=== PATIENT | female | born 1990 | race Caucasian/White ===

== ENCOUNTER 2018-10-07 05:43 | Inpatient (IN) | payer MEDICAID ==
[~2018-10-07] VITALS: Ht 157.5 cm; Wt 86.0 kg
--- NOTE | 2018-10-07 05:44 | NSTRPT ---
NST Information Datetime Report Generated by CPN: 10/07/2018 05:44 Datetime: 10/03/2018 09:21 NST Information EGA: 39.0 Test Number: 4 Time on Monitor: 10/03/2018 09:35 Time off Monitor: 10/03/2018 09:56 NST Duration (Min): 21 Reason for NST: Diabetes Mellitus; Other Reason for NST Other: A2DM Test and Monitor Explained: Monitor Explained; Test Explained; Verbalized Understanding Pulse: 82 Resp: 18 SBP: 113 DBP: 63 Test Evaluation NST Interventions: None Patient States Movement: Present Contraction Frequency: NONE FHR Baseline : 135 Variability: Moderate 6-25bpm Accelerations: 15X15 Decelerations: None FHR Category: Category I NST Results: Reactive Comments: PT TO U/S; UZMA 13.7; Cephalic; FBS 88 Electronically Signed By E-Signature: with User ID: [id number] Datetime: 09/30/2018 13:07 NST Information EGA: 38.4 NST Duration (Min): 36 Datetime: 09/26/2018 13:52 NST Information EGA: 38.0 NST Duration (Min): 41 Datetime: 09/23/2018 13:16 NST Information EGA: 37.4 NST Duration (Min): 45
[2018-10-07 05:55] VITALS: Ht 157.5 cm; Wt 86.0 kg
[2018-10-07 06:10] VITALS: BP 113/57; PULSE 88; RESP 19
[2018-10-07] MEDS ORDERED: LACTATED RINGER'S 1,000 ML IV SCH ×2 (06:11→13:41)
[2018-10-07] MEDS ORDERED: LACTATED RINGER'S 1,000 ML IV PRN (06:13)
[2018-10-07] MEDS ORDERED: CEFAZOLIN 2 GM/50 ML (PMX) 50 ML IVPB SCH (06:30)
[2018-10-07] MEDS ORDERED: CARBOPROST 250 MCG INJ IM PRN ×2 (06:30→14:00)
[2018-10-07] MEDS ORDERED: METHYLERGONOVINE 0.2 MG INJ IM PRN ×2 (06:30→14:00)
[2018-10-07] MEDS ORDERED: OXYTOCIN 30 UNITS/LR 500 ML IV PRN ×2 (06:30→14:00)
[2018-10-07] MEDS ORDERED: OXYTOCIN 30 UNITS/LR 500 ML IV SCH (06:30)
[2018-10-07] MEDS ORDERED: MISOPROSTOL 200 MCG TAB PR PRN ×2 (06:30→14:00)
[2018-10-07] MEDS ORDERED: FENTAnyl 50 MCG/ML VIAL ONE (07:24)
[2018-10-07] MEDS ORDERED: morphine SULFATE/PF (10 MG/10 ML) INJ ONE (07:24)
--- NOTE | 2018-10-07 07:26 | PREAC ---
Date/Time of Note Date/Time of Note DATE: 10/07/18 TIME: 07:25 Anesthesia Eval and Record Evaluation Time Pre-Procedure Interview DATE: 10/07/18 TIME: 07:25 Age 28 Sex female NPO: 8 hrs Preoperative diagnosis iup at term Planned procedure repeat c section Past Medical History Past Medical History: Includes GI: Obesity : Gestational diabetes Surgery & Anesthesia Issues No known issue Meds Anticoagulation: No Beta Rasheeda within 24 hr: No Reason Beta Rasheeda not given: Pt. not on B-Rasheeda Current Medications Lactated Ringer's 1,000 ml @ 125 mls/hr Q8H IV ; Start 10/07/18 at 06:11 Cefazolin Sodium/ Dextrose 50 ml @ 100 mls/hr ONCE IVPB ; Start 10/07/18 at 06:30 Oxytocin/Lactated Ringer's 500 ml @ 125 mls/hr POST IV ; Start 10/07/18 at 06:30 Oxytocin/Lactated Ringer's 500 ml @ 0 mls/hr ONCE PRN IV .VAGINAL BLEEDING; Start 10/07/18 at 06:30 Methylergonovine Maleate (Methergine) 0.2 mg ONCE PRN IM .VAGINAL BLEEDING; Start 10/07/18 at 06:30 Carboprost Tromethamine (Hemabate) 250 mcg ONCE PRN IM .VAGINAL BLEEDING; Start 10/07/18 at 06:30 Misoprostol (Cytotec) 1,000 mcg ONCE PRN NC .VAGINAL BLEEDING; Start 10/07/18 at 06:30 Lactated Ringer's 1,000 ml @ 2,000 mls/hr Q30M PRN IV .ANESTHESIA Last administered on 10/07/18at 06:34; Admin Dose 2,000 MLS/HR; Start 10/07/18 at 06:13 Meds reviewed: Yes Allergies Coded Allergies: No Known Allergy (Unverified , 10/07/18) Allergies Reviewed: Yes Labs/Studies Labs Reviewed: Reviewed by anesthesiologist Result Diagram: 10/07/1820 10/07/18 0620 Laboratory Tests 10/07/18 06:20 test: Positive Pre-procedure Exam Last vitals Vital Signs Date Temp Pulse Resp B/P (MAP) Pulse Ox O2 O2 Flow FiO2 Time Delivery Rate 10/07/18 98.2 88 19 113/57 Room Air 06:10 (75) Airway: Adequate mouth opening, Adequate thyromental dist Mallampati: Mallampati II Teeth: Normal Lung: Normal Heart: Normal ASA Physical Status ASA physical status: 2 Emergency: None Planned Anesthetic Neuraxial: Spinal Planned Pain Management Sub-arachniod narcotics Pre-operative Attestations Prior to commencing anesthesia and surgery, the patient was re-evaluated, there was verification of: *The patient's identity *The results of appropriate recent lab work and preoperative vital signs *The above evaluation not changing prior to induction *Anesthetic plan, risk benefits, alternative and complications discussed with patient/family; questions answered; patient/family understands, accepts and wishes to proceed. LALA SCHREIBER Oct 07, 2018 07:26
[2018-10-07] MEDS ORDERED: DEXAMETHASONE 4 MG/ML 1 ML INJ ONE (07:56)
[2018-10-07] MEDS ORDERED: ONDANSETRON 4 MG INJ ONE (07:56)
--- NOTE | 2018-10-07 07:56 | HP ---
Date/Time of Note Date/Time of Note DATE: 10/07/18 TIME: 07:55 OB - History Hx of Present : 2 Para: 1 Care: Good Care Ultrasounds: Normal mid trimester US Obstetrical Complications: None Medical Complications: None Past Family/Social History * Past Medical, Surgical, Family and Obstetric Histories reviewed from chart. OB Admission Exam Vital Signs Vital Signs Vital Signs Date Temp Pulse Resp B/P (MAP) Pulse Ox O2 O2 Flow FiO2 Time Delivery Rate 10/07/18 98.2 88 19 113/57 Room Air 06:10 (75) Physical Exam HEENT: WNL Heart: Rhythm Normal Lungs: Clear, Equal Abdomen: WNL Extremities: Normal Reflexes: Normal Cervical Dilatation: None Effacement: 0% Station: -3 Membranes: Intact Heart Rate: 130's Accelerations: Accelerations Present Decelerations: No Decelerations Contractions on Admission: None Last 72 hours Lab Results CBC & BMP 10/07/18 06:20 OB Assessment/Plan Reason for admission: section Plan: Section CYNTHIA HERRERA MD Oct 07, 2018 07:55
[2018-10-07] MEDS ORDERED: PHENYLephrine (100 MCG/ML) 10ML SYG ONE (08:23)
[2018-10-07] MEDS ORDERED: ZOLPIDEM 5 MG TAB PO PRN (08:30)
[2018-10-07] MEDS ORDERED: ONDANSETRON 4 MG INJ IV PRN (08:30)
[2018-10-07] MEDS ORDERED: HYDROmorphONE 0.5 MG/0.5 ML SYG IV PRN ×2 (08:30)
[2018-10-07] MEDS ORDERED: DIPHENHYDRAMINE 50 MG INJ IV PRN (08:30)
[2018-10-07] MEDS ORDERED: NALOXONE (0.4 MG/ML) INJ IV PRN (08:30)
--- NOTE | 2018-10-07 08:36 | OPR ---
Operative Report Planned Procedure Procedure date Oct 07, 2018 Procedure(s) repeat c/s Performed by see signature line Skin Care Consultant: ABRIL HERNDON MD Pre-procedure diagnosis repeat c/s [id number] Anesthesia Type: [id number] spinal Post-Procedure Post-procedure diagnosis same Findings Live Baby [], Apgars [] and [], weight [], position [], [] presentation []cord. Estimated Blood Loss: 600 - 700 mls Specimen(s) none Grafts/Implant(s) none Complication(s) none Procedure Description Under satisfactory [spinal] anesthesia, the patient was prepped and draped and placed in a supine position, tilted to the left. Pfannenstiel incision was made, carried through the subcutaneous tissue. Bleeders brought under control with electrocautery. Fascia incised to the length of the incision. Rectus muscles from the fascia, divided midline. Peritoneum exposed, entered through a transverse incision. Exploration of abdomen revealed gravid uterus. Bladder flap was developed. Transverse incision was made in the lower segment of the uterus. Amniotic sac ruptured. [] amniotic fluid noted. [] Nasal oropharyngeal suction was performed. The baby was handed to the team for immediate attention. The placenta was delivered manually intact. Uterine cavity was cleaned with wet sponge and drainage established. Uterus closed in 2 layers using [] in continuous fashion. Peritoneal cavity irrigated with warm saline. Sponge, needle and instrument count reported to be correct. Abdominal peritoneum closed with [] continuously. Rectus muscle approximated with []. Fascia closed with [one monocryl], and skin closed with dakota. Estimated blood loss [700]mL. CYNTHIA HERRERA MD Oct 07, 2018 08:36
--- NOTE | 2018-10-07 08:55 | PAC ---
Date/Time of Note Date/Time of Note DATE: 10/07/18 TIME: 08:54 Post-Anesthesia Notes Post-Anesthesia Note Last documented vital signs Vital Signs Date Temp Pulse Resp B/P (MAP) Pulse Ox O2 O2 Flow FiO2 Time Delivery Rate 10/07/18 98.2 88 19 113/57 Room Air 855 (75) Activity: WNL Respiratory function: WNL Cardiovascular function: WNL Mental status: Baseline Pain reasonably controlled: Yes Hydration appropriate: Yes Nausea/Vomiting absent: Yes LALA SCHREIBER Oct 07, 2018 08:55
[2018-10-07] MEDS ORDERED: MIDAZOLAM 1 MG/ML 2 ML INJ ONE (10:38)
[2018-10-07] MEDS: KETOROLAC 30 MG INJ IV PRN ×2 (11:21→17:21)
[2018-10-07 12:15] VITALS: BP 115/62; PULSE 79; RESP 20
[2018-10-07] MEDS: OXYTOCIN 30 UNITS/LR 500 ML IV SCH ×2 (13:59→23:13)
[2018-10-07] MEDS ORDERED: NACL 0.9% 3 ML SYG IV SCH (14:00)
[2018-10-07] MEDS ORDERED: NA PHOSPHATE/BIPHOS 133 ML ENEMA PR PRN (14:00)
[2018-10-07] MEDS ORDERED: LANOLIN HPA 1 PKT TOP PRN (14:00)
[2018-10-07 15:48] VITALS: BP 104/54; PULSE 79; RESP 20
[2018-10-07 20:31] VITALS: BP 105/57; PULSE 72; RESP 18
[2018-10-08] VITALS: BP 104/58; PULSE 80; RESP 17
[2018-10-08] MEDS: KETOROLAC 30 MG INJ IV PRN (02:57)
[2018-10-08 04:00] VITALS: BP 101/59; PULSE 83; RESP 18
[2018-10-08 08:40] VITALS: BP 100/53; PULSE 72; RESP 19
[2018-10-08] MEDS: HYDROCODONE/APAP (5/325) TAB PO PRN ×2 (10:19→18:06)
[2018-10-08 12:04] VITALS: BP 90/55; PULSE 69; RESP 18
[2018-10-08] MEDS: IBUPROFEN 800 MG TAB PO SCH ×2 (13:38→21:58)
[2018-10-08 16:08] VITALS: BP 101/56; PULSE 74; RESP 16
--- NOTE | 2018-10-08 18:51 | PN ---
Date/Time of Note Date/Time of Note DATE: 10/08/18 TIME: 18:50 OB Subjective Subjective Subjective POD#1 Patient is doing well. She denies nausea, vomiting, shortness of breath, chest pain, headache. She has been ambulating without difficulty, tolerating regular diet. Pain is well controlled on current medications OB Objective Objective Objective Vital Signs Date Temp Pulse Resp B/P (MAP) Pulse Ox O2 O2 Flow FiO2 Time Delivery Rate 10/08/18 97.9 74 16 101/56 Room Air 16:08 (71) 10/08/18 97 08:40 General: AAO X 3, comfortable, NAD, appropriate mood and affect. ABD: +BS. Soft, non-tender. Uterus 2 cm below umbilicus Incision: Dry dressing Flank: No CVA tenderness (B/L) LE: Mild edema. No clubbing, cyanosis, thigh or calf tenderness (B/L). Homans 'sign is negative OB Assessment/Plan Other plan: 28 years old 2 para 2-0-0-2 s/p delivery POD#1 - AF, VSS - Baby is doing well, at bed side. She is bonding well - Continue care HERMILO ROJAS Oct 08, 2018 18:51
[2018-10-08 19:45] VITALS: BP 101/55; PULSE 76; RESP 18
[2018-10-09 04:01] VITALS: BP 102/55; PULSE 76; RESP 18
[2018-10-09] MEDS: HYDROCODONE/APAP (5/325) TAB PO PRN ×4 (04:43→18:45)
[2018-10-09] MEDS: IBUPROFEN 800 MG TAB PO SCH ×3 (06:29→21:57)
[2018-10-09 08:00] VITALS: BP 100/56; PULSE 75; RESP 18
--- NOTE | 2018-10-09 08:40 | DS ---
Date/Time of Note Date/Time of Note DATE: 10/09/18 TIME: 08:40 Discharge Summary Admission/Discharge Info Admit Date/Time Oct 07, 2018 at 05:43 Discharge Date/Time Discharge Diagnosis term preg Patient Condition: Stable Hospital Course unremarkable Primary Care Provider Not On Staff Doctor CYNTHIA HERRERA MD Oct 09, 2018 08:40
--- NOTE | 2018-10-09 12:04 | QN ---
Documentation Comment Procedure: circumscison of baby boy USING GOMCO 1.1 surgeon Cole Herrera anesthesia none EBL 1 CC CYNTHIA HERRERA MD Oct 09, 2018 12:04
[2018-10-09 16:00] VITALS: BP 112/54; PULSE 72; RESP 18
[2018-10-09 20:00] VITALS: BP 110/62; PULSE 82; RESP 18
[2018-10-10 03:56] VITALS: BP 109/58; PULSE 82; RESP 18
[2018-10-10] MEDS: IBUPROFEN 800 MG TAB PO SCH ×2 (05:30→13:43)
[2018-10-10] MEDS: HYDROCODONE/APAP (5/325) TAB PO PRN ×2 (07:25→11:20)
[2018-10-10 08:00] VITALS: BP 118/76; PULSE 81; RESP 20
[2018-10-10] MEDS ORDERED: MEASLES,MUMPS,RUBELLA VACCINE INJ SC* ONE (09:00)
[2018-10-10] MEDS ORDERED: DIPHTH/TET/ACEL PERTUSS (ADULT) 0.5 ML VIAL IM* ONE (09:00)
--- NOTE | 2018-10-15 11:01 | DELSUM ---
Delivery Summary A-C Datetime Report Generated by CPN: 10/15/2018 11:00 DELIVERY PERSONNEL [employer] Admin: Mao, Joanne MATERNAL INFORMATION Delivery Anesthesia: Spinal Medications in Delivery: See Anesthesia notes Delivery QBL (ml): 700 Placenta Cultured: No Maternal Complications: Other Other Maternal Complications: gestational diabetes A2DM LABOR SUMMARY EDC: 10/10/2018 00:00 No. Babies in Womb: 1 Attempted: No Labor Anesthesia: None LABOR INFORMATION Reason for Induction: Not Applicable Group B Beta Strep: Positive Antibiotics # of Doses: 1 Antibiotics Time of Last Dose: 10/07/2018 08:01 Steroids Given: None Reason Steroids Not Administered: Not Applicable MEMBRANES Membranes Rupture Method: Artificial Rupture of Membranes: 10/07/2018 08:07 Length of Rupture (hr): 0.00 Amniotic Fluid Color: Clear Amniotic Fluid Amount: Moderate Amniotic Fluid Odor: None STAGES OF LABOR Stage 3 hr: 0 Stage 3 min: 1 CSECTION DELIVERY Primary Indication: Repeat Elective Secondary Indication: N/A CSection Urgency: Elective CSection Incidence: Repeat Labor: No Labor Elective: Elective CSection Incision: Lower Uterine Transverse BABY A INFORMATION Infant Delivery Date/Time: 10/07/2018 08:07 Method of Delivery: Born in Route : No : N/A Forceps: N/A Vacuum Extraction: N/A Shoulder Dystocia : No SHOULDER DYSTOCIA BABY A Delivery Date/Time: 10/07/2018 08:07 PRESENTATION/POSITION BABY A Presentation: Cephalic Cephalic Presentation: Vertex Vertex Position: Left Occipital Anterior Breech Presentation: N/A PLACENTA INFORMATION BABY A Placenta Delivery Time : 10/07/2018 08:08 Placenta Method of Delivery: Manual Removal Placenta Status: Delivered SCORES BABY A Heart Rate 1 min: >100 bpm Resp Effort 1 min: Good Cry Reflex Irritability 1 min: Cough/Sneeze/Pulls Away Muscle Tone 1 min: Active Motion Color 1 min: Blue/Pale Resuscitation Effort 1 min: Tactile Stimulation SCORE 1 MIN: 8 Heart Rate 5 min: >100 bpm Resp Effort 5 min: Good Cry Reflex Irritability 5 min: Cough/Sneeze/Pulls Away Muscle Tone 5 min: Active Motion Color 5 min: Body [place], Extremit Blue Resuscitation Effort 5 min: Tactile Stimulation SCORE 5 MIN: 9 INFORMATION BABY A Gestational Age at Delivery: 39.4 Gestational Status: Full Term- 39- 40.6 Weeks Outcome : Liveborn, with signs of life Infant Condition : Stable Infant Sex: Male IDENTIFICATION/MEDS BABY A ID Band Number: [id number] ID Band Location: Right Leg; Left Arm Sensor Applied: Yes Sensor Number: [id number] Sensor Location : Cord Clamp Vitamin K Given : Not Given Erythromycin Given: Not Given WEIGHT/LENGTH BABY A Infant Birthweight (gm): 3510 Weight (lb): 7 Weight (oz): 12 Length (in): 20.00 Infant Length (cm): 50.80 CORD INFORMATION BABY A No. Cord Vessels: 3 Nuchal Cord : N/A Cord Blood Taken: Yes Suction: Mouth; Nose ASSESSMENT BABY A Infant Complications: None Physical Findings at Delivery: Within Normal Limits Infant Respirations: Appears Normal Sas Etl Developer/ALS Called : No Infant Care By: Madie Rockwell RN Transferred To: Remains with Mother
== END 2018-10-10 19:30 | disposition home or self-care (01) | DRG 788 ==
LOC: L-D 05:43 → MS1 12:47
PROVIDERS: ADMIT Obstetrics & Gynecology; ATTEND Obstetrics & Gynecology
PROC: 3E033VJ Introduction of Other Hormone into Peripheral Vein, Percutaneous Approach (ICD-10-PCS; 2018-10-07)
PROC: 10D00Z1 Extraction of Products of Conception, Low, Open Approach (ICD-10-PCS; principal; 2018-10-07 07:30)
DX: O65.5 Obstructed labor due to abnormality of maternal pelvic organs (principal); O34.211 Maternal care for low transverse scar from previous cesarean delivery; Z3A.39 39 weeks gestation of pregnancy; Z37.0 Single live birth
CPT/HCPCS: 82947; 85025; 85610; 85730; 86592; 86850; 86900; 86901; 87340; 90715; 99464; J0690; J1100; J1885; J2250; J2274; J2370; J2405; J2590; J3010; J7120